=== PATIENT | male | born 1985 | race Two or more races ===

== ENCOUNTER 2019-04-29 22:46 | Emergency (ER) | payer MEDICAID ==
[~2019-04-29] VITALS: Ht 172.7 cm; Wt 61.0 kg
[2019-04-30 00:26] LABS: CLARITY URINE CLEAR (CLEAR); COLOR URINE YELLOW (YELLOW); KETONES URINE NEGATIVE (NEGATIVE); LEUKOCYTE ESTERASE URINE NEGATIVE (NEGATIVE); NITRITE URINE NEGATIVE (NEGATIVE); OCCULT BLOOD URINE NEGATIVE (NEGATIVE); PROTEIN URINE NEGATIVE (NEGATIVE); SPECIFIC GRAVITY URINE 1.019 (1.005-1.030)
[2019-04-30] MEDS ORDERED: IBUPROFEN 600MG TABLET PO ONE (00:45)
[2019-04-30 02:31] VITALS: BP 102/70
== END 2019-04-30 02:33 | disposition home or self-care (01) ==
LOC: ER 22:46
DX: R07.81 Pleurodynia (principal)
CPT/HCPCS: 71101; 74176; 81003; 99284

== ENCOUNTER 2021-05-16 11:44 | Emergency (ER) | payer MEDICAID ==
[~2021-05-16] VITALS: Ht 167.6 cm; Wt 68.0 kg
[2021-05-16] MEDS ORDERED: CEPH500T MT (12:43)
[2021-05-16] MEDS ORDERED: IBUP-2029 MT (12:43)
[2021-05-16] MEDS ORDERED: CEPHALEXIN 250MG CAPSULE PO ONE (12:45)
[2021-05-16] MEDS ORDERED: ACETAMINOPHEN WITH CODEINE 300/30MG TABLET PO ONE (12:45)
[2021-05-16] MEDS ORDERED: IBUPROFEN 800MG TABLET PO ONE (12:45)
[2021-05-16] MEDS ORDERED: HYDR453.4 TP (13:06)
[2021-05-16 13:19] VITALS: BP 126/82
== END 2021-05-16 13:21 | disposition home or self-care (01) ==
LOC: ER 11:50
DX: L03.116 Cellulitis of left lower limb (principal)
CPT/HCPCS: 99284